=== PATIENT | female | born 1945 | race Caucasian/White ===

== ENCOUNTER → 2023-10-17 | Day surgery (SDC) | payer OTHER | END | disposition home or self-care (01) | LOC: FMAMMOTONE 10:09 | PROVIDERS: ATTEND Internal Medicine | PROC: 0HBT3ZX Excision of Right Breast, Percutaneous Approach, Diagnostic (ICD-10-PCS; principal; 2023-10-17) | DX: N60.11 Diffuse cystic mastopathy of right breast (principal); N60.31 Fibrosclerosis of right breast; N62 Hypertrophy of breast; N60.81 Other benign mammary dysplasias of right breast; N64.89 Other specified disorders of breast; R92.0 Mammographic microcalcification found on diagnostic imaging of breast | CPT/HCPCS: 19081; 76098-TC-FY; 87899; 88305-TC; 88342-TC; A4648 ==